=== PATIENT | female | born 1990 | race Hispanic/Latino ===

== ENCOUNTER 2017-06-17 23:45 | Inpatient (IN) | payer OTHER ==
[~2017-06-17] VITALS: Ht 160 cm; Wt 106.3 kg
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
[2017-06-18 00:59] LABS: ABSOLUTE BASOPHIL COUNT 0 /CUMM (0.0-0.2); ABSOLUTE EOSINOPHIL COUNT 0 /CUMM (0.0-0.7); ABSOLUTE GRANULOCYTE CT 3.7 /CUMM (1.4-6.5); ABSOLUTE MONOCYTE COUNT 0.7 /CUMM (0.10-0.60); BASOPHIL % 0.5 % (0.0-2.0); EOSINOPHIL % 0.6 % (0-5); HEMATOCRIT 38.8 % (37-47); MEAN CORPUSCULAR VOLUME 96.9 FL (81.0-99.0); PLATELET COUNT 248 /CUMM (130-400); RBC DISTRIBUTION WIDTH 12.7 % (11.5-14.5); WHITE BLOOD CELL COUNT 7.4 /CUMM (4.8-10.8)
[2017-06-18] MEDS ORDERED: MELATONIN3 M4 PO (09:50)
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
[2017-06-19 13:06] VITALS: BP 136/91
--- NOTE | 2017-06-19 14:56 | History & Physical ---
General Information and HPI MD Statement: I have seen and personally examined RUBEN HEATH and documented this H&P. The patient is a 27 year old F who presented with a patient stated chief complaint of depression. History of Present Illness: Ms. Heath is a 27 y/o female with no significant past medical history presents with complaints of depression and not feeling well. Currently symptoms are minimally better.She has been depressed and anxious for a long time now. She does not frequently use drugs. 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 Home Review of Systems Review of Systems Constitutional: Reports: no symptoms. Cardiovascular: Reports: no symptoms. Respiratory: Reports: no symptoms. GI: Reports: no symptoms. Genitourinary: Reports: no symptoms. Neurological/Psychological: Reports: no symptoms. Exam & Diagnostic Data Last 24 Hrs of Vital Signs/I&O Vital Signs Date Time Temp Pulse Resp B/P B/P Pulse O2 O2 Flow FiO2 Mean Ox Delivery Rate 06/19 1306 98.5 75 136/91 06/19 1240 97.9 82 16 129/76 98 Room Air 06/19 0927 98.2 80 18 140/78 97 Room Air 06/19 0801 97 Room Air 06/19 0625 78 18 102/64 97 Room Air 06/19 0438 68 18 129/72 98 Room Air 06/18 2309 98.2 72 22 108/62 99 Room Air 06/18 2002 98.6 80 18 112/72 98 Room Air 06/18 1841 98.3 79 18 111/73 98 Room Air Intake & Output 06/19 1600 06/19 0800 06/19 0000 Intake Total Output Total Balance Patient 234 lb Weight Physical Exam General Appearance Alert, Oriented X3 Cardiovascular Regular Rate, Normal S1, Normal S2 Lungs Clear to Auscultation Abdomen Soft, No Tenderness Neurological Normal Gait, Normal Speech Assessment/Plan As Ranked By This Provider Problem List: 1. Depression Core Measures/Misc (11/08) Acute Coronary Syndrome ACS Diagnosis: No Congestive Heart Failure Congestive Heart Failure Diagnosis No Cerebrovascular Accident CVA/TIA Diagnosis: No VTE (View Protocol) VTE Risk Factors No risk factors No Mechanical VTE Prophylaxis d/t LowRisk-No Interven Req'd No VTE Pharm Prophylaxis d/t LowRisk-No Interven Req'd Sepsis (View protocol) Sepsis Present: No
[2017-06-19 15:36] VITALS: BP 130/72
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
[2017-06-19 20:03] VITALS: BP 133/89
[2017-06-20 07:38] VITALS: BP 125/76
[2017-06-20 11:58] VITALS: BP 128/69
--- NOTE | 2017-06-20 13:12 | CP SOUTH PROGRESS NOTE PSYCH ---
Psych (Inpt) Progress Note Progress Note Include the following elements, when applicable: Involvement in the active treatment of the patient with behavioral observations of the patient and the patient's response to the treatment. Review of the ongoing treatment process in the context of the treatment plan. Indication of how multi-disciplinary staff members are carrying out the treatment plan. Plans for future interventions and recommendations for revision of the treatment plan. Liaison with other physicians/providers. Progress Note: Doing well, slept well, stated that she took trazodone and hydroxyzine and did not have any issuse with it.Asked to have lower dose of hydroxyzine so she could "work myself up" if she needed to, will change to 10mg prn rather than 25mg. Annoyed at her family, we discussed not focusing on family arguments and taking time to focus on herself here, she stated that she was able to get off the phone and distract herself. Energy is good, mood is good. MSE: pleasant young woman, well related, well groomed, good eye contact. She has no psychomotor changes. Her speech is normal. Her thinking is linear and goal directed; free of delusional material or thoughts to harm self/anyone else. Her mood is good and affect is full and reactive. She is not hallucinating. Her insight and judgment are adequate. 27 year old woman with worsening depressive sx, suicidal thoughts and aggression toward others in context of poorly dealt with loss of child 3 years ago, and relationship and family distress. She prefers not to take medication and is agreeable to PRN low dose hydroxyzine and trazodone. Plan: continue current plan of care. Appears to be stabilizing clinically.
[2017-06-20 15:37] VITALS: BP 129/71
[2017-06-20 19:41] VITALS: BP 132/66
[2017-06-21 07:52] VITALS: BP 101/58
[2017-06-21 12:18] VITALS: BP 135/72
[2017-06-21 16:26] VITALS: BP 137/96
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
[2017-06-21 19:54] VITALS: BP 127/78
[2017-06-22 07:44] VITALS: BP 123/71
--- NOTE | 2017-06-22 11:35 | SOCIAL WORKER PROG NOTE PSYCH ---
Social Work Progress Note Progress Note Called Lima's and left a voicemail. Dr. Vallejo and I met with Lima this morning together. Lima reported that the Trazadone helped her sleep last night. She reported a good mood, no feelings of sadness. Minimal anxiety. Feels slightly guilty about things with her . She denies any SI/HI. She thought about her housing situation after we talked yesterday and she said she is planning on just returning home to her Mom's for the time being and stay away from her Brother. Discussed aftercare tx. She would benefit from IOP and she is willing to go for a brief time, but she may have a co-pay and she may need to take the train into [place] from [place]. She is not open to doing tx with [facility] at this time. Offered to call her Mother with her today to discuss her plan for discharge. Lima and I called her Mother at 4pm. Talked briefly about the stressors surrounding her admission. Talked about her current clinical presentation. Mom has no current concerns about safety. She is welcome home. Realizes that they have their struggles but they are close. Talked about IOP as an aftercare plan, but if it gets to be too much she could be transferred to outpatient. Mom seemed to be on board with everything. Lima is scheduled for IOP intake for 1:15pm tomorrow. She said that if it is too much for her to do, she will look into [facility].
[2017-06-22 12:14] VITALS: BP 132/70
[2017-06-22 16:08] VITALS: BP 115/60; BP 135/63
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
[2017-06-22 19:53] VITALS: BP 132/53
[2017-06-23 07:38] VITALS: BP 122/78
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
--- NOTE | 2017-06-23 10:14 | SOCIAL WORKER PROG NOTE PSYCH ---
Social Work Progress Note Progress Note Faxed Transfer Summary to IOP
[2017-06-23] MEDS ORDERED: TRAZODONE HCL100 M1 PO (10:55)
--- NOTE | 2017-06-23 10:57 | Patient Discharge Instructions ---
Psych Discharge Inst General Discharge Information Reason for Admission: Depression, suicidal thinking. Psy Discharge Primary Diag+ Unspecified depression Psy Discharge Secondary Diag+ Cannabis use disorder Summary Tests/Major Procedures Lab ALT 37 U/L 06/18/17 0046 AST 23 U/L 06/18/17 0046 BUN 16 mg/dL 06/18/17 0046 Calcium 9.1 mg/dL 06/18/17 0046 Carbon Dioxide 28 mmol/L 06/18/17 0046 Chloride 105 mmol/L 06/18/17 0046 Creatinine 0.8 mg/dL 06/18/17 0046 Estimated GFR > 60 ml/min 06/18/17 0046 Glucose 97 mg/dL 06/18/17 0046 Potassium 3.9 mmol/L 06/18/17 0046 Sodium 142 mmol/L 06/18/17 0046 Total Beta HCG NEGATIVE 06/18/17 0046 Absolute Monocytes 0.7 /CUMM H 06/18/17 0046 Hct 38.8 % 06/18/17 0046 Hgb 13.6 G/DL 06/18/17 0046 MCH 34.0 PG H 06/18/17 0046 Plt Count 248 /CUMM 06/18/17 0046 RBC 4.00 /CUMM L 06/18/17 0046 WBC 7.4 /CUMM 06/18/17 0046 Serum Alcohol < 10.0 MG/DL 06/18/17 0046 Urine Cannabis Screen > 80.00 NG/ML H 06/18/17 0046 Studies Pending at DC: None. Patient Instructions Contact Information Your Psychiatrist on [facility] was Florin Vallejo MD * If you are experiencing an emergency related to this hospitalization, please call [phone] to contact the treating psychiatrist or the psychiatrist-on- call. * To Request a copy of your medical records, please contact the Medical Records Department at [phone]. * To request results of studies pending at the time of discharge, please call [phone]. * Continue your Medications until directed to stop by your Healthcare provider. General Medication Information Please continue to take your new medications and your continued home medications , unless otherwise indicated on your discharge medication list, or unless directed by your MD or MAINTENANCE OF WAY FOREMAN to stop them. Special Instructions Diet Regular Activity Normal Other Inst/Recommendations Stay away from cannabis. Please see PCP about abnl labs and for a TSH. - Tobacco Use Treatment Offered Post DC Medications Offered: Not Applicable Post DC Tobacco Treatment Plan: Not Applicable - EtOH/Drug Use D/O Treatment Offered Post DC Medications Offered: Med Not Indicated for D/O Post DC EtOH/SubAbuse [place] Plan: [place] SubAbuse/Dual IOP Program Appt Date: 06/23/17 Program Appt Time: 1315 Metabolic Screening ([x]) Not Applicable, patient not on a neuroleptic. OR () Patient on a neuroleptic(s) . Enter below results for Hemoglobin A1C, and lipid panel if obtained during the last 365 days. BMI: 41.500 Blood Pressure: 122/78 Laboratory Results From [place] EHR (If applicable): Advance Directives Does the Patient have Medical Advance Directives No/Refused further info Does Pt have Psychiatric Advance Directives? No/Refused further info Does Patient have a Designated Surrogate Decision Maker: No Information About Psychiatric Advance Directives Provided? Refused Discharge Plan Post Hospital Treatment Plan: Will be living at mother's home. IOP intake today at 1:15 pm.
[2017-06-23 12:07] VITALS: BP 128/67
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
--- NOTE | 2017-06-23 13:51 | SOCIAL WORKER PROG NOTE PSYCH ---
Social Work Progress Note Faxed Referral(s) Referred To: [facility] Transition of Care Documents sent: Health Summary Faxed to: [facility] Fax #: [phone] Faxed by: Nisreen Perry Date faxed: 06/23/17 Time Faxed: [phone]
== END 2017-06-23 13:22 | DRG 881 ==
LOC: ERH 23:45 → ERHI 06-19 09:44 → CP SOUTH 06-19 09:44
PROVIDERS: Pediatrics
DX: F32.9 Major depressive disorder, single episode, unspecified (principal); F12.90 Cannabis use, unspecified, uncomplicated
CPT/HCPCS: 80307; G0463; G0480

== ENCOUNTER 2017-06-26 14:14 | Emergency (ER) | payer OTHER ==
[~2017-06-26] VITALS: Ht 154.9 cm; Wt 108.0 kg
[~2017-06-26 14:14] MED LIST: MELATONIN3 M4 PO; TRAZODONE HCL100 M1 PO
[2017-06-26 17:08] VITALS: BP 104/59
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
[2017-06-26] MEDS ORDERED: XANAX0.25 M1 PO (17:15)
[2017-06-26] MEDS ORDERED: ZOLOFT50 M1 PO (17:15)
== END 2017-06-26 17:34 ==
LOC: ERH 14:14
DX: F41.9 Anxiety disorder, unspecified (principal); F32.9 Major depressive disorder, single episode, unspecified
CPT/HCPCS: 80307; 81001